=== PATIENT | female | born 1965 | race Caucasian/White ===

== ENCOUNTER 2022-08-07 11:42 | Emergency (ER) | payer OTHER, SELFPAY ==
--- NOTE | ~2022-08-07 | CT_ITS ---
EXAMINATION: CT brain wo con INDICATION: Head injury COMPARISON: None TECHNIQUE: Standard unenhanced head CT. The dose-length product (DLP) was 605.33 mGy-cm. The mA was a djusted according to patient size. Iterative reconstruction technique was employed. FINDINGS: There is no intracranial hemorrhage, acute infarction, or abnormal mass lesion. The ventric les are normal. There is no abnormal mass effect or midline shift. The lopes-white matter differentiat ion is normal. The basal cisterns are patent. The orbits are normal. There is mild mucosal thickening of the paranasal sinuses. IMPRESSION: 1. No acute intracranial abnormality. Reviewed, dictated and finalized at location B. 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
--- NOTE | ~2022-08-07 | CT_ITS ---
EXAMINATION: CT cervical spine wo con DATE: 08/07/2022 12:12 INDICATION: Head injury. TECHNIQUE: Computed tomography (CT) of the cervical spine was performed without intravenous contrast. Automated exposure control and iterative reconstruction technique were employed. The dose-length pro duct was 405.73 mGy-cm. COMPARISON: None FINDINGS: There is 7 degrees levocurvature of cervical spine. There is kyphosis of cervical spine. Ve rtebral body heights are normal. There is moderately decreased disc height at C3-C4, C4-C5, and C6-C7 . There is interbody fusion at C5-C6. The following disc levels are specifically discussed: C2-C3: There is no uncovertebral joint osteoarthritis. There is severe bilateral facet joint osteoart hritis. There is no neural foraminal stenosis. There is no central canal stenosis. C3-C4: There is moderate bilateral uncovertebral joint osteoarthritis. There is severe bilateral face t joint osteoarthritis. There is mild right neural foraminal stenosis. There is mild central canal st enosis. C4-C5: There is severe right and moderate left uncovertebral joint osteoarthritis. There is moderate bilateral facet joint osteoarthritis. There is mild bilateral neural foraminal stenosis. There is mil d central canal stenosis. C5-C6: There is ankylosis of the uncovertebral joints with moderate hypertrophy. There is moderate bi lateral facet joint hypertrophy. There is mild lateral neural foraminal stenosis. There is mild centr al canal stenosis. C6-C7: There is severe bilateral uncovertebral joint osteoarthritis. There is severe right and modera te left facet joint osteoarthritis. There is mild bilateral neural foraminal stenosis. There is mild central canal stenosis. C7-T1: There is no uncovertebral joint osteoarthritis. There is severe bilateral facet joint osteoart hritis. There is mild bilateral neural foraminal stenosis. There is no central canal stenosis. IMPRESSION: 1. No fracture. 2. Moderate cervical spondylosis. Reviewed, dictated and finalized at location A. 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
[2022-08-07 11:46] VITALS: BP 175/95; PULSE 78; RESP 18; TEMP 36.4; O2SAT 100
--- NOTE | 2022-08-07 12:34 | ED.HEATRA ---
HPI - Head Injury General Chief complaint: Head Injury Stated complaint: raya x 1 week/ringing in ears Time Seen by Provider: 08/07/22 11:52 History of Present Illness HPI Narrative: 57-year-old female presents to the emergency room for evaluation of a headache and tinnitus. Patient states that she has been experiencing headache for 1 week associated with ringing in her ears, light sensitivity and increased somnolence. States the day prior to her when her symptoms began she had a hammer fall on her head. States the pain in her head is right where the hammer struck her. Denies any altered mental status or loss of consciousness at that time denies nausea. Related Data Home Medications Medication Instructions Recorded Confirmed levothyroxine 75 mcg tablet 75 mcg PO DAILY 08/07/22 Review of Systems Review of Systems: CONSTITUTIONAL: Denies fever, chills, or sweats. EYES: Denies visual changes, redness, or discharge. ENT: Denies rhinorrhea, congestion, sore throat, or otalgia. CARDIOVASCULAR: Denies chest pain, palpitations, or edema. RESPIRATORY: Denies cough or dyspnea. GASTROINTESTINAL: Denies abdominal pain, nausea, vomiting, or diarrhea. GENITOURINARY: Denies dysuria or hematuria. SKIN: Denies rash or itching. MUSCULOSKELETAL: Denies back pain, joint pain, or myalgia. NEUROLOGIC: Denies headache, numbness, dizziness, or weakness. PSYCHIATRIC: Denies anxiety or depression. Exam Narrative: GENERAL: Well-appearing, well-nourished, no physical limitations, and in no acute distress. HEAD: Normocephalic, atraumatic. EYES: Conjunctivae normal, PERRLA and EOMI. ENT: External nose normal, Nares clear, no rhinorrhea or epistaxis. Mucous membranes moist. Oropharynx without tonsillar hypertrophy exudate or other lesions. External ears normal, bilateral TMs normal bilaterally NECK: Supple. No meningeal signs CHEST: Clear to auscultation. No respiratory distress. No wheezes rales or rhonchi. HEART: Regular rate and rhythm. No murmur heard. Normal peripheral pulses. EXTREMITIES: Normal range of motion. No edema. No clubbing or cyanosis SKIN: Warm, dry, no rash. No noted wounds NEURO: No focal deficits. Alert and oriented x3. MAEW. CN's II-XI intact bilaterally, normal gait PSYCH: Cooperative. Normal mood and affect. Course Vital Signs Vital signs: Vital Signs Temperature 36.4 C 08/07/22 11:46 Pulse Rate 78 08/07/22 11:46 Respiratory Rate 18 08/07/22 11:46 Blood Pressure 175/95 H 08/07/22 11:46 Pulse Oximetry 100 08/07/22 11:46 Oxygen Delivery Room Air 08/07/22 11:46 Temperature 36.4 C 08/07/22 11:46 Pulse Rate 78 08/07/22 11:46 Respiratory Rate 18 08/07/22 11:46 Blood Pressure 175/95 H 08/07/22 11:46 Pulse Oximetry 100 08/07/22 11:46 Oxygen Delivery Room Air 08/07/22 11:46 Discharge Plan Discharge Clinical Impression: Closed head injury, Concussion Patient Disposition: Home, Self-Care Condition: Stable Instructions: Antibiotic Form, Concussion (ED), Head Injury (ED) Prescriptions: No Action levothyroxine 75 mcg Tablet 75 mcg PO DAILY Follow-up/Referrals: [facility] [Primary Care Provider] - Time of Disposition: 12:36
[2022-08-07 12:50] VITALS: BP 130/70; PULSE 70; RESP 16; O2SAT 98
== END 2022-08-07 12:50 | disposition home or self-care (01) ==
PROVIDERS: Emergency Provider Nurse Practitioner Family
DX: S06.0X0A Concussion without loss of consciousness, initial encounter (principal); W20.8XXA Other cause of strike by thrown, projected or falling object, initial encounter
CPT/HCPCS: 70450; 72125; 99284